=== PATIENT | female | born 1945 | race Caucasian/White ===

== ENCOUNTER 2016-11-26 07:16 | Emergency (ER) | payer MEDICARE ==
--- NOTE | 2016-11-26 07:57 | ED ---
Back Pain - HPI Summary HPI Summary: 70 female presents to ED complaining of back pain after a fall around 6:10am today, 11/26/16. Patient was walking down 3 steps in her house and slipped, falling backward with her mid-back landing on the step above. Patient did not hit her head and denies LOC. She states the pain is the worst right in the middle/lower part of her back. She describes it as feeling sore and achey. Denies any radiation. Bending over and twisting makes the pain worse. Laying flat makes the pain better. She has not tried taking any medication for the pain. She is able to walk and bear weight without much pain. Denies neck, hip, lower extremity pain, chest pain, SOB, bowel/bladder dysfunction, saddle anesthesia, weakness, and swelling. - History of Current Complaint Chief Complaint: EDBackInjuryPain Stated Complaint: FALL Hx Obtained From: Patient Onset/Duration: Sudden Onset - 2 hours ago Onset/Duration: Traumatic - slipped going down stairs Timing: Constant - worse with bending and twisting Back Pain Location: Is Discrete @ - T-9 through L-4 Severity Initially: Mild Severity Currently: Moderate Pain Intensity: 4 Pain Scale Used: 0-10 Numeric Character: Sharp - with bending and twisting, Aching, Stiffness Aggravating Symptom(s): Movement, Bending Alleviating Symptom(s): Rest, Position Associated Signs And Symptoms: Negative: Swelling, Redness, Bruising, Weakness, Numbness, Tingling, Abdominal Pain, Bladder Incontinence, Bowel Incontinence, Pain with Weight Bearing - Allergies/Home Medications Allergies/Adverse Reactions: Allergies Allergy/AdvReac Type Severity Reaction Status Date / Time Ciprofloxacin [From Cipro] Allergy Unknown Verified 11/26/16 08:02 Reaction Details Diazepam [From Valium] Allergy Unknown Verified 11/26/16 08:02 Reaction Details Doxycycline Allergy Unknown Verified 11/26/16 08:02 Reaction Details Etodolac Allergy Unknown Verified 11/26/16 08:02 Reaction Details Latex Allergy Unknown Verified 11/26/16 08:02 Reaction Details Minocycline [From Minocin] Allergy Unknown Verified 11/26/16 08:02 Reaction Details Nitrofurantoin Allergy Unknown Verified 11/26/16 08:02 [From Macrobid] Reaction Details Sulfa Antibiotics Allergy Unknown Verified 11/26/16 08:02 Reaction Details Terconazole [From Terazol] Allergy Unknown Verified 11/26/16 08:02 Reaction Details Tetracycline Allergy Unknown Verified 11/26/16 08:02 Reaction Details Formoterol [From Dulera] AdvReac Unknown Verified 09/01/16 22:49 Reaction Details Mometasone [From Dulera] AdvReac Unknown Verified 09/01/16 22:49 Reaction Details PMH/Surg Hx/FS Hx/Imm Hx Respiratory History: Reports: Hx Asthma, Hx Chronic Bronchitis - yearly February, March, Aug, Hx Seasonal Allergies GI History: Reports: Hx Gastroesophageal Reflux Disease Musculoskeletal History: Reports: Hx Arthritis - osteoarthritis Right hip, Hx Back Problems, Hx Orthopedic Injury - broke top bones Right foot, 5 years ago Sensory History: Reports: Hx Contacts or Glasses Opthamlomology History: Reports: Hx Contacts or Glasses - Cancer History Hx Chemotherapy: No Hx Radiation Therapy: No - Surgical History Surgery Procedure, Year, and Place: hysterectomy, appendectomy, tonsilectomy. Hx Anesthesia Reactions: Yes - vomiting, Pt does not recall anesthesia that caused reaction - Immunization History Date of Tetanus Vaccine: unk Date of Influenza Vaccine: 08/30/16 Infectious Disease History: No Infectious Disease History: Reports: Hx Shingles Denies: Traveled Outside the [place] in Last 30 Days - Family History Known Family History: Positive: Cardiac Disease, Other - argueta's esophagous mother - Social History Alcohol Use: Weekly Substance Use Type: Reports: None Smoking Status (MU): Never Smoked Tobacco Review of Systems Constitutional: Negative Eyes: Negative ENT: Negative Cardiovascular: Negative Respiratory: Negative Gastrointestinal: Negative Genitourinary: Negative Positive: Arthralgia, Myalgia, Decreased ROM - with bending and twisting Skin: Negative Neurological: Negative Negative: Weakness, Paresthesia, Numbness Psychological: Normal All Other Systems Reviewed And Are Negative: Yes Physical Exam Triage Information Reviewed: Yes Vital Signs On Initial Exam: Initial Vitals Temp Pulse Resp BP Pulse Ox 97.2 F 81 15 139/67 100 11/26/16 07:19 11/26/16 07:19 11/26/16 07:19 11/26/16 07:19 11/26/16 07:19 Vital Signs Reviewed: Yes Appearance: Positive: Well-Appearing, Pain Distress - mild when changing positions for exam, none when laying comfortably Skin: Positive: Warm, Skin Color Reflects Adequate Perfusion, Dry Head/Face: Positive: Normal Head/Face Inspection Eyes: Positive: Normal Neck: Positive: Supple, Nontender. Negative: Tenderness @ Respiratory/Lung Sounds: Positive: Clear to Auscultation, Breath Sounds Present Cardiovascular: Positive: Normal, RRR, Pulses are Symmetrical in both Upper and Lower Extremities Abdomen Description: Positive: Nontender Bowel Sounds: Positive: Present Musculoskeletal: Positive: Limited @ - bending, twisting, Pain @ - T-9 through L -4 on palpation of vertebral muscles & spine. Small erythematous abrasion around L1/L2 region from carpet. No edema or ecchymosis noted. No calf pain, crepitus, step off. Strength lower and upper extremities bilateral 5/5. Sensory intact. full ROM lower/upper extremities. No neck or upper back tendernes. Pedal pulses 3+ b/l and reflexes 2+. Patient is able to bear weight and tandem gait without experiencing pain or weakness. No bladder/bowel dysfunction or saddle anesthesia.. Negative: Benedicto Sign Left, Benedicto Sign Right Neurological: Positive: Normal, Sensory/Motor Intact, Alert, Oriented to Person Place, Time, CN Intact II-III, Reflexes Intact, NV Bundle Intact Distally, Normal Gait Psychiatric: Positive: Normal Diagnostics - Vital Signs Vital Signs Temp Pulse Resp BP Pulse Ox 11/26/16 07:19 97.2 F 81 15 139/67 100 - Laboratory Lab Statement: Any lab studies that have been ordered have been reviewed, and results considered in the medical decision making process. - Radiology thoracolumbar spine x-ray Xray Interpretation: No Acute Changes - OSTEOARTHRITIS OF THE LOWER LUMBAR SPINE. NO ACUTE FINDINGS Radiology Interpretation Completed By: Radiologist Back Pain Course/Dx - Course Course Of Treatment: Patient was given Ibuprofen for pain and inflammation management. Although the injury appears to be muscular, patient would feel more comfortable knowing she did not fracture anything. X-ray of thoracolumbar spine was obtained and negative for any acute injury/fractures. - Diagnoses Differential Diagnosis/HQI/PQRI: Positive: Arthritis, Cauda Equina Syndrome, Fracture, Herniated Disc, Strain, Sprain Provider Diagnoses: Thoracolumbar back pain, Strain of mid-back Discharge - Discharge Plan Condition: Good Disposition: HOME Prescriptions: Ibuprofen TAB* [Motrin TAB* 600 MG] 600 mg PO Q8H PRN #14 tab PRN Reason: Pain Patient Education Materials: Low Back Strain (ED), Thoracic Back Strain (ED) Referrals: Tika Morton MD [Primary Care Provider] - Additional Instructions: Take prescribed Motrin every 6-8 hours for the next 5-7 days to help with pain and inflammation as needed. Take this medication with food. Get plenty of rest and avoid lifting, bending and movements that cause you pain. You may do what you can tolerate. Try using heat in the morning and ice at night. Follow-up with your primary care provider within the 7 days. If symptoms worsen or do not improve please seek medical attention promptly.
--- NOTE | 2016-11-26 08:38 | RAD ---
INDICATION: Fall. Back pain. COMPARISON: CT lumbar spine August 18, 2015 TECHNIQUE: Routine 2 view imaging was performed FINDINGS: Bones: There are no acute bony findings. There are arthritic changes of the lower lumbar spine with bony spur formation at the lower 3 lumbar levels. There is facet arthropathy of the lower lumbar spine and there is moderate narrowing about L5-S1. These findings are unchanged. Alignment: Normal Disc spaces: The remaining disc spaces are well-maintained Soft tissues: There are no soft tissue abnormalities. IMPRESSION: OSTEOARTHRITIS OF THE LOWER LUMBAR SPINE. NO ACUTE FINDINGS
[2016-11-26] MEDS ORDERED: Ibuprofen TAB* 600 MG PO ONE (08:39)
[2016-11-26 09:02] VITALS: BP 138/64
== END 2016-11-26 09:01 | disposition home or self-care (01) ==
LOC: ED 07:16
DX: M54.5 Low back pain (principal); M54.9 Dorsalgia, unspecified; S29.012A Strain of muscle and tendon of back wall of thorax, initial encounter; W10.9XXA Fall (on) (from) unspecified stairs and steps, initial encounter; Y93.9 Activity, unspecified; Y92.9 Unspecified place or not applicable; Y99.9 Unspecified external cause status
CPT/HCPCS: 72080; 99282; A9270-GY

== ENCOUNTER 2017-02-28 06:41 | Day surgery (SDC) | payer MEDICARE ==
[~2017-02-28 06:41] MED LIST: Acetaminophen TAB* 325 MG PO PRN; Buffered Lidocaine 1% SYRIN* 3 ML/SYR SYRINGE INTRADERM ONE
[2017-02-28] MEDS ORDERED: Lidocaine 2% EPI 1:200000 MPF* 20 ML VIAL ONE (07:52)
[2017-02-28] MEDS ORDERED: Phenylephrine 2.5% OPTH.SOL* 2 ML BTL ONE (07:52)
[2017-02-28] MEDS ORDERED: Proparacaine 0.5% OPHTH.SOL* 15 ML BTL ONE (07:52)
[2017-02-28] MEDS ORDERED: acetaZOLAMIDE TAB* 250 MG ONE (07:52)
[2017-02-28] MEDS ORDERED: Povidone Iodine 5% OPTH* 30 ML BTL ONE (07:52)
[2017-02-28] MEDS ORDERED: Flurbiprofen 0.03% OPTH.SOL* 2.5 ML BTL ONE (07:52)
[2017-02-28] MEDS ORDERED: Neomycin/Polymy/Dex OPTH.SUSP* MAXITROL 0.1% 5 ML ONE (07:52)
[2017-02-28] MEDS ORDERED: Lidocaine 1% MPF* 2 ML VIAL ONE (07:52)
[2017-02-28] MEDS ORDERED: Cyclopentolate 1% OPTH.SOL* 2 ML BTL ONE (07:52)
[2017-02-28] MEDS ORDERED: Midazolam* 1 MG/ML 2 ML VIAL (2 MG) ONE (08:53)
[2017-02-28 09:51] VITALS: BP 111/75
--- NOTE | 2017-02-28 22:31 | OP ---
OPERATIVE NOTE: DATE OF OPERATION: 02/28/17 - [facility] DATE OF : 41 SURGEON: Javon Rg MD PREOPERATIVE DIAGNOSIS: Cataract, right eye. POSTOPERATIVE DIAGNOSIS: Cataract, right eye. OPERATIVE PROCEDURE: Phacoemulsification, right eye with IOL. PROCEDURE: The patient was brought to the operating room after being given 1/2 % Alcaine with epinephrine drops in the preoperative area. The eye was prepped and draped in the usual sterile fashion. Sterile drape and eyelid speculum were placed. Again, topical 1/2% Alcaine with epinephrine was given. A paracentesis incision was made at the 9 o'clock position with the No.75 blade. Clear cornea incision 2.2 x 2.2-mm was created at the 12 o'clock position starting at the anterior limbus using the 2.2-mm keratome. The anterior chamber was irrigated with 0.4 mL of 1% non-preservative intracameral lidocaine and filled with DisCoVisc. A capsulorrhexis was completed using the cystotome and the Utrata forceps. Hydrodissection was performed with balanced salt solution. The lens nucleus was removed with the Phacoemulsification handpiece without incident. Cortex was removed with the irrigation-aspiration handpiece. The capsular bag was re-inflated using DisCoVisc and an [id number] implant was inserted with the shooter. The irrigation-aspiration handpiece was used to remove all residual DisCoVisc. The eye was refilled with balanced salt solution and the wound checked and found to be watertight. Topical Maxitrol drops were given. [id number]/[facility] #: [id number] [facility]
== END 2017-02-28 09:32 | disposition home or self-care (01) ==
LOC: OREAST 06:41
PROVIDERS: ATTEND Specialist
DX: H25.11 Age-related nuclear cataract, right eye (principal); H53.021 Refractive amblyopia, right eye; J44.9 Chronic obstructive pulmonary disease, unspecified; K21.9 Gastro-esophageal reflux disease without esophagitis
CPT/HCPCS: J2250; V2632

== ENCOUNTER 2017-03-07 06:28 | Day surgery (SDC) | payer MEDICARE ==
[2017-03-07] MEDS ORDERED: fentaNYL* 50 MCG/ML 2 ML VIAL (100 MCG VIAL) ONE (07:25)
[2017-03-07] MEDS ORDERED: Midazolam* 1 MG/ML 5 ML VIAL (5 MG) ONE (07:25)
[2017-03-07 08:12] VITALS: BP 115/47
--- NOTE | 2017-03-07 10:40 | OP ---
DATE OF OPERATION: 03/07/2017. DATE OF : 1945. SURGEON: Javon Rg M.D. PREOPERATIVE DIAGNOSIS: Cataract left eye. POSTOPERATIVE DIAGNOSIS: Cataract left eye. OPERATIVE PROCEDURE: Phacoemulsification left eye with IOL. PROCEDURE: The patient was brought to the operating room after being given 1/2% Alcaine with epinep hrine drops in the preoperative area. The eye was prepped and draped in the usual sterile fashion. Sterile drape and eyelid speculum were placed. Again, topical 1/2% Alcaine with epinephrine was gi miranda. A paracentesis incision was made at the 3 o'clock position with the No.75 blade. Clear cornea incision 2.2 x 2.2-mm was created at the 6 o'clock position starting at the anterior limbus using t he 2.2-mm keratome. The anterior chamber was irrigated with 0.4 mL of 1% non-preservative intracame ral lidocaine and filled with DisCoVisc. A capsulorrhexis was completed using the cystotome and the Utrata forceps. Hydrodissection was performed with balanced salt solution. The lens nucleus was re moved with the Phacoemulsification handpiece without incident. Cortex was removed with the irrigati on-aspiration handpiece. The capsular bag was re-inflated using DisCoVisc and an [id number] implant was inserted with the shooter, oriented to the 50 degree meridian. Horizontal reference skinner were made with the patient in a seated position in the preoperative area. The irrigation-aspiration hand piece was used to remove all residual DisCoVisc. The eye was refilled with balanced salt solution a nd the wound checked and found to be watertight. Topical Maxitrol drops were given. [id number]/[facility] #: [id number]
[2017-03-07] MEDS ORDERED: Neomycin/Polymy/Dex OPTH.SUSP* MAXITROL 0.1% 5 ML ONE (13:38)
[2017-03-07] MEDS ORDERED: Lidocaine 1% MPF* 2 ML VIAL ONE (13:38)
[2017-03-07] MEDS ORDERED: Flurbiprofen 0.03% OPTH.SOL* 2.5 ML BTL ONE (13:38)
[2017-03-07] MEDS ORDERED: Povidone Iodine 5% OPTH* 30 ML BTL ONE (13:38)
[2017-03-07] MEDS ORDERED: Phenylephrine 2.5% OPTH.SOL* 2 ML BTL ONE (13:38)
[2017-03-07] MEDS ORDERED: Lidocaine 2% EPI 1:200000 MPF* 20 ML VIAL ONE (13:38)
[2017-03-07] MEDS ORDERED: Cyclopentolate 1% OPTH.SOL* 2 ML BTL ONE (13:38)
[2017-03-07] MEDS ORDERED: Proparacaine 0.5% OPHTH.SOL* 15 ML BTL ONE (13:38)
== END 2017-03-07 08:20 | disposition home or self-care (01) ==
LOC: OREAST 06:28
PROVIDERS: ATTEND Specialist
DX: H25.12 Age-related nuclear cataract, left eye (principal); H53.021 Refractive amblyopia, right eye; J45.909 Unspecified asthma, uncomplicated
CPT/HCPCS: A9270-GY; J2250; J3010; V2787

== ENCOUNTER 2018-11-23 09:07 | Emergency (ER) | payer MEDICARE ==
[2018-11-23] MEDS ORDERED: Aspirin 81 mg CHEW TAB* 81 MG TAB.CHEW PO ONE (09:40)
[2018-11-23] MEDS ORDERED: Aspirin 81 mg CHEW TAB* 81 MG TAB.CHEW ONE (09:59)
[2018-11-23 10:30] LABS: ABS Basophils 0 10^3/ul (0-0.2); ABS Eosinophils 0.2 10^3/ul (0-0.6); ABS Lymphocytes 0.4 10^3/ul (1.0-4.8); ABS Monocytes 0.6 10^3/ul (0-0.8); ABS Neutrophils 3.3 10^3/ul (1.5-7.7); ABS Nucleated RBC 0 10^3/ul; Eosinophil % 3.6 %; Hematocrit 38 % (35-47); Hemoglobin 12.8 g/dl (12.0-16.0); Lymphocyte % 9.3 %; Mean Corpuscular HGB Conc 34 g/dl (31-36); Mean Corpuscular Hemoglobin 30 pg (27-31); Mean Corpuscular Volume 89 fL (80-97); Mean Platelet Volume 8.3 fL (7.4-10.4); Nucleated Red Blood Cells % 0; Platelet Count 184 10^3/ul (150-450); Red Blood Count 4.27 10^6/ul (4.00-5.40); Red Cell Distribution Width 14 % (10.5-15); White Blood Count 4.5 10^3/ul (3.5-10.8)
[2018-11-23 10:38] LABS: INR 0.95 (0.77-1.02)
[2018-11-23 10:41] LABS: Albumin 3.9 g/dL (3.2-5.2); Albumin/Globulin Ratio 2.4 (1-3); BUN/Creatinine Ratio 26.2 (8-20); Calcium 9.1 mg/dL (8.6-10.3); EGFR Non-African American 95.9 (>60); Globulin 1.6 g/dL (2-4); Potassium 3.7 mmol/L (3.5-5.0); Total Protein 5.5 g/dL (6.4-8.9)
[2018-11-23 11:17] LABS: TSH (Thyroid Stimulating Horm) 1.06 mcIU/mL (0.34-5.60)
[2018-11-23 11:23] LABS: Total Bilirubin 0.5 mg/dL (0.2-1.0)
[2018-11-23] MEDS ORDERED: LORazepam TAB(*) 1 MG PO ONE (11:55)
[2018-11-23] MEDS ORDERED: LORazepam TAB(*) 0.5 MG ONE (12:08)
--- NOTE | 2018-11-23 12:48 | ED ---
Upper Extremity Pain - HPI Summary HPI Summary: Patient presents with 4 day history of symptoms. She reports 4 days ago she woke the middle the night with left-sided chest pain. She reports this as a sharp pressure that has been consistent since. She denies alleviation or exacerbation. No associated symptoms of shortness of breath, dizziness, nausea , sweating, vomiting, jaw pain however the past 3 nights she has had left sided shoulder pain which last night radiated into her tricep region down to her elbow. She has tried Aleve without relief. She spoke with her PCP in the phone who also thought this was musculoskeletal in advised supportive care however with her fourth night of limited sleep due to pain she decided to come in for evaluation. - History of Current Complaint Chief Complaint: EDExtremityUpper Stated Complaint: LEFT ARM PAIN Time Seen by Provider: 11/23/18 09:22 Hx Obtained From: Patient, Family/Coldfusion - - Allergies/Home Medications Allergies/Adverse Reactions: Allergies Allergy/AdvReac Type Severity Reaction Status Date / Time ciprofloxacin [From Cipro] Allergy Insomnia Verified 11/23/18 09:55 dexlansoprazole Allergy Leg Cramps Verified 11/23/18 09:55 [From Dexilant] diazepam [From Valium] Allergy See Comment Verified 11/23/18 09:55 doxycycline Allergy GI Upset Verified 11/23/18 09:55 etodolac Allergy Itching Verified 11/23/18 09:55 formoterol [From Dulera] Allergy See Comment Verified 11/23/18 09:55 lanolin Allergy Rash And Verified 11/23/18 09:55 Itching latex Allergy Hives/Diff. Verified 11/23/18 09:55 Breathing/I tching minocycline [From Minocin] Allergy Bleeding Verified 11/23/18 09:55 mometasone furoate Allergy See Comment Verified 11/23/18 09:55 [From Dulera] nitrofurantoin Allergy Headache Verified 11/23/18 09:55 [From Macrobid] Sulfa (Sulfonamide Allergy Swelling Verified 11/23/18 09:55 Antibiotics) Of Face,Lips,& Throat terconazole [From Terazol 3] Allergy Leg Cramps Verified 11/23/18 09:55 tetracycline Allergy GI Upset Verified 11/23/18 09:55 Home Medications: Home Medications Clobetasol Propionate [Clobex] 118 ml TOPICAL MONTHLY 11/23/18 [History Confirmed 11/23/18] Selenium Sulfide [Selrx] 1 sha TOPICAL MONTHLY 11/23/18 [History Confirmed 11/23] PMH/Surg Hx/FS Hx/Imm Hx Previously Healthy: Yes Endocrine/Hematology History: Denies: Hx Anticoagulant Therapy, Hx Blood Disorders, Hx Diabetes, Hx Anemia , Autoimmune Disease Cardiovascular History: Denies: Hx Congenital Heart Disease, Hx Congestive Heart Failure, Hx Hypercholesterolemia, Hx Hypertension, Hx Valvular Heart Disease Respiratory History: Reports: Hx Asthma - ?, Hx Chronic Bronchitis - yearly February, March, Aug, Hx Seasonal Allergies Denies: Hx Pulmonary Embolism GI History: Reports: Hx Gastroesophageal Reflux Disease - well controlled w/ PPI Musculoskeletal History: Reports: Hx Arthritis - osteoarthritis Right hip, Hx Back Problems, Hx Orthopedic Injury - broke top bones Right foot, 5 years ago; Rt arm fx Sensory History: Reports: Hx Cataracts - bilat eyes, Hx Contacts or Glasses - glasses Denies: Hx Hearing Aid Opthamlomology History: Reports: Hx Cataracts - bilat eyes, Hx Contacts or Glasses - glasses - Cancer History Hx Chemotherapy: No Hx Radiation Therapy: No - Surgical History Surgery Procedure, Year, and Place: hysterectomy and appendix removed, tonsillectomy. bladder surgery - [place]. bladder sling - [place]. urethra stretch - [place]. 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 Negative: Palpitations Respiratory: Negative Gastrointestinal: Negative Genitourinary: Negative Positive: Arthralgia, Myalgia. Negative: Decreased ROM Skin: Negative Neurological: Negative Psychological: Normal All Other Systems Reviewed And Are Negative: Yes Physical Exam Triage Information Reviewed: Yes Vital Signs On Initial Exam: Initial Vitals Temp Pulse Resp BP Pulse Ox 97.3 F 72 18 142/69 98 11/23/18 09:10 11/23/18 09:10 11/23/18 09:10 11/23/18 09:10 11/23/18 09:10 Vital Signs Reviewed: Yes Appearance: Positive: Well-Appearing, No Pain Distress, Well-Nourished Skin: Positive: Warm, Skin Color Reflects Adequate Perfusion, Dry - no erythema , no ecchymosis, no lesions Head/Face: Positive: Normal Head/Face Inspection Eyes: Positive: Normal, EOMI, MAYELA, Conjunctiva Clear. Negative: Conjunctiva Inflammed, Discharge ENT: Positive: Normal ENT inspection, Hearing grossly normal, Pharynx normal - mucosa moist. Negative: Nasal congestion, Nasal drainage, Tonsillar swelling, Tonsillar exudate Neck: Positive: Supple, Nontender, No Lymphadenopathy Respiratory/Lung Sounds: Positive: Clear to Auscultation, Breath Sounds Present. Negative: Rales, Rhonchi, Wheezes Cardiovascular: Positive: Normal, RRR, Pulses are Symmetrical in both Upper and Lower Extremities, S1, S2. Negative: Murmur, Rub, Leg Edema Left, Leg Edema Right Abdomen Description: Positive: Nontender, No Organomegaly, Soft Bowel Sounds: Positive: Present Musculoskeletal: Positive: Strength/ROM Intact, Pain @ - Lt trapezius m and teres m TTP - FROM w/o pain; (-) empty can Neurological: Positive: Normal, Sensory/Motor Intact, Alert, Oriented to Person Place, Time, CN Intact II-III Psychiatric: Positive: Normal Diagnostics - Vital Signs Vital Signs Temp Pulse Resp BP Pulse Ox 11/23/18 10:00 70 16 99 11/23/18 09:53 74 14 144/74 99 11/23/18 09:23 68 148/66 97 11/23/18 09:22 70 99 11/23/18 09:10 97.3 F 72 18 142/69 98 - Laboratory Result Diagrams: 11/23/18 09:21 11/23/18 09:21 Lab Statement: Any lab studies that have been ordered have been reviewed, and results considered in the medical decision making process. Re-Evaluation - Re-Evaluation First Eval Change: Unchanged - no relief w/ ASA Second Eval Change: Improved - imrpoved w/ heat Course/Dx - Course Course Of Treatment: ECG: NSR, no ST elevations - pt had a bout of acute Lt shoulder pain while here so updated ECG ordered - still normal. CXR: no acute findings. Labs: unremarkable for acute findings except her protein level is low - could be contributing to WISAM pain if she's muscle wasting. Shoulder XR: OA and osteopenia w/o effusion, fx, dislocation. Suspect WISAM pain. Conversation with pt about her options for pain management and care moving forward. She agrees to switch to from aleve to ibuprofen alternating with acetaminophen. Additionally, she will try daily prednisone - has had injected in the past w/o systemic affects. Also discussed importance of better nourishment - she admits she had many food restrictions but will discuss w/ PCP for options to improve nutrition and WISAM health, incuding but not limited consuming more protein and calcium. May benefit from DEXA scan, etc. - Diagnoses Provider Diagnoses: Arthritis of shoulder region, left, Osteopenia Discharge - Sign-Out/Discharge Documenting (check all that apply): Patient Departure - Discharge Plan Condition: Stable Disposition: HOME Prescriptions: predniSONE TAB* [Deltasone 20 MG TAB*] 40 mg PO DAILY #8 tab Patient Education Materials: Calcium and Osteoporosis (ED), Osteoarthritis (ED) Referrals: Tika Morton MD [Primary Care Provider] - Additional Instructions: Your pain appears to be from musculoskeletal issues - arthritis with muscle spasm/tension. Continue heat with gentle stretches, switch from aleve to ibuprofen 600mg every 6 hours with food alternating with acetaminophen extra strength every 6 hours as needed for pain. You may also try topical analgesics such as biofreeze, bengay and salonpas patches, etc - these may be purchased over the counter. You have also been provided with a steroid to reduce pain/ inflammation - take as directed. *If no relief, follow-up with PCP to evaluate need for orthopedic intervention Additionally, you appear to have signs of malnourishment - your protein is low and you are showing signs of low bone density. Research foods that you can tolerate that are high in protein as well as calcium for bone strength. Follow- up with PCP for guidance and possibly a DEXA scan to better assess overall bone density. He/she may recommend supplementation if needed and reassess status to ensure progress with interventions. - Billing Disposition and Condition Condition: STABLE Disposition: Home
[2018-11-23] MEDS ORDERED: Acetaminophen TAB* 325 MG PO ONE (13:48)
[2018-11-23] MEDS ORDERED: predniSONE TAB* 10 MG PO ONE (13:48)
[2018-11-23 14:47] VITALS: BP 123/63
== END 2018-11-23 14:47 | disposition home or self-care (01) ==
LOC: ED 09:07
DX: M19.012 Primary osteoarthritis, left shoulder (principal); M85.812 Other specified disorders of bone density and structure, left shoulder; R07.89 Other chest pain; Z88.2 Allergy status to sulfonamides; Z88.8 Allergy status to other drugs, medicaments and biological substances; Z88.1 Allergy status to other antibiotic agents; Z91.040 Latex allergy status
CPT/HCPCS: 36415; 71045; 80053; 83605; 83735; 84443; 84484; 85025; 85379; 85610; 85730; 93005; 99284; A9270-GY; J7512